=== PATIENT | female | born 1995 | race Caucasian/White ===

== ENCOUNTER 2021-12-18 20:47 | Outpatient (CLI) | payer OTHER ==
[~2021-12-18 20:47] MED LIST: COLACE100 MG PO; IBUPROFEN600 MG PO; NORCO 5-325 TA1 EACH PO; PRENATAL VITAM1 EAC8 PO
== END 2021-12-18 23:44 | disposition home or self-care (01) ==
LOC: GENOP 20:47
DX: O47.03 False labor before 37 completed weeks of gestation, third trimester (principal); Z3A.36 36 weeks gestation of pregnancy
CPT/HCPCS: G0463

== ENCOUNTER 2021-12-31 18:01 | Outpatient (CLI) | payer OTHER | END 2021-12-31 19:35 | disposition home or self-care (01) | LOC: GENOP 18:01 | DX: O99.891 Other specified diseases and conditions complicating pregnancy (principal); M54.50 Low back pain, unspecified; M79.605 Pain in left leg; M79.604 Pain in right leg; R11.0 Nausea; O36.8130 Decreased fetal movements, third trimester, not applicable or unspecified; Z87.891 Personal history of nicotine dependence; Z3A.38 38 weeks gestation of pregnancy | CPT/HCPCS: 59025; 81001 ==

== ENCOUNTER 2022-01-06 05:32 | Inpatient (IN) | payer OTHER ==
[~2022-01-06] VITALS: Ht 167.6 cm; Wt 69.4 kg
[2022-01-06] MEDS ORDERED: PRENATABS FA T1 EACH PO (06:25)
[2022-01-06 07:11] LABS: HEMOGLOBIN 13.2 gm/dl (12.3-15.3); RED BLOOD COUNT 4.03 M/UL (4.00-5.10); WHITE BLOOD COUNT 10.9 K/UL (4.5-11.0)
[2022-01-06] MEDS ORDERED: IBUPROFEN600 MG PO (12:52)
[2022-01-06] MEDS ORDERED: COLACE100 MG PO (12:52)
[2022-01-06] MEDS ORDERED: FERROUS SULFAT325 MG PO (12:52)
[2022-01-07 03:23] LABS: HEMOGLOBIN 12.2 gm/dl (12.3-15.3)
== END 2022-01-07 16:16 | disposition home or self-care (01) | DRG 807 ==
LOC: OB 05:32
PROVIDERS: ADMIT Obstetrics & Gynecology
PROC: 10E0XZZ Delivery of Products of Conception, External Approach (ICD-10-PCS; principal; 2022-01-06)
PROC: 10907ZC Drainage of Amniotic Fluid, Therapeutic from Products of Conception, Via Natural or Artificial Opening (ICD-10-PCS; 2022-01-06)
PROC: 3E033VJ Introduction of Other Hormone into Peripheral Vein, Percutaneous Approach (ICD-10-PCS; 2022-01-06)
PROC: 4A1H7CZ Monitoring of Products of Conception, Cardiac Rate, Via Natural or Artificial Opening (ICD-10-PCS; 2022-01-06)
PROC: 10H073Z Insertion of Monitoring Electrode into Products of Conception, Via Natural or Artificial Opening (ICD-10-PCS; 2022-01-06)
PROC: 10H07YZ Insertion of Other Device into Products of Conception, Via Natural or Artificial Opening (ICD-10-PCS; 2022-01-06)
DX: O13.4 Gestational [pregnancy-induced] hypertension without significant proteinuria, complicating childbirth (principal); Z37.0 Single live birth; Z20.822 Contact with and (suspected) exposure to COVID-19; Z3A.39 39 weeks gestation of pregnancy; Z28.310 Unvaccinated for COVID-19; Z83.3 Family history of diabetes mellitus
CPT/HCPCS: 81001; 85014; 85018; 85025; J2590; J7120